=== PATIENT | female | born 1975 | race Caucasian/White ===

== ENCOUNTER → 2020-11-11 | Outpatient (CLI) | payer OTHER ==
[~2020-11-11] MED LIST: PEPCID20 MG PO; ZOFRAN ODT 4 MG4 MG SL
== END ==
LOC: SLEEP 14:00
DX: R29.818 Other symptoms and signs involving the nervous system (principal); E66.01 Morbid (severe) obesity due to excess calories
CPT/HCPCS: 95810

== ENCOUNTER 2021-05-10 00:48 | Emergency (ER) | payer OTHER ==
[~2021-05-10] VITALS: Ht 172.7 cm; Wt 149.7 kg
[2021-05-10 01:41] LABS: HEMOGLOBIN 12.5 gm/dl (12.3-15.3); RED BLOOD COUNT 5.31 M/UL (4.00-5.10); WHITE BLOOD COUNT 8.2 K/UL (4.5-11.0)
[2021-05-10 02:05] LABS: BUN/CREATININE RATIO 25 (0-10)
[2021-05-10] MEDS ORDERED: SPRINTEC 28 DA1 EACH PO (10:45)
[2021-05-10] MEDS ORDERED: ZESTRIL/PRINIVI10 MG PO (10:45)
[2021-05-10] MEDS ORDERED: ALL DAY ALLERGY10 MG PO (10:46)
[2021-05-10] MEDS ORDERED: LASIX TAB 20 MG20 MG PO (10:46)
[2021-05-10] MEDS ORDERED: FERROUS SULFAT325 M2 PO (10:46)
[2021-05-10] MEDS ORDERED: VITAMIN C 500500 MG PO (10:47)
[2021-05-10] MEDS ORDERED: LOPRESSOR 25 MG25 MG PO (18:26)
[2021-05-10] MEDS ORDERED: ELIQUIS5 MG PO (18:26)
== END 2021-05-10 19:15 | disposition home or self-care (01) ==
LOC: ER1 00:48 → CDU 04:32 → ER1 04:32
PROVIDERS: Physician Assistant
DX: I48.91 Unspecified atrial fibrillation (principal); E87.6 Hypokalemia; I10 Essential (primary) hypertension; D64.9 Anemia, unspecified; Z20.822 Contact with and (suspected) exposure to COVID-19; E78.5 Hyperlipidemia, unspecified; Z90.49 Acquired absence of other specified parts of digestive tract; Z88.0 Allergy status to penicillin
CPT/HCPCS: 71045; 80053; 82550; 82553; 82728; 83540; 83550; 83735; 83874; 83880; 84439; 84443; 84484; 85025; 85610; 85730; 93005; 96374; 99285; J0696; U0002

== ENCOUNTER → 2021-05-18 | Outpatient (CLI) | payer OTHER ==
[~2021-05-18] MED LIST changes: +ALL DAY ALLERGY10 MG PO; +ELIQUIS5 MG PO; +FERROUS SULFAT325 M2 PO; +LASIX TAB 20 MG20 MG PO; +LOPRESSOR 25 MG25 MG PO; +SPRINTEC 28 DA1 EACH PO; +VITAMIN C 500500 MG PO; +ZESTRIL/PRINIVI10 MG PO
== END ==
LOC: HEART 5 15:07
DX: I48.91 Unspecified atrial fibrillation (principal)

== ENCOUNTER → 2021-07-15 | Outpatient (CLI) | payer OTHER | LOC: ECHO 12:00 → NM 13:00 | DX: I20.9 Angina pectoris, unspecified (principal); R06.02 Shortness of breath; I51.7 Cardiomegaly; R94.39 Abnormal result of other cardiovascular function study | CPT/HCPCS: ECHO; 78452; 93017; 93306; A9502; J2785 ==

== ENCOUNTER 2022-01-14 22:27 | Emergency (ER) | payer OTHER ==
[2022-01-14 23:47] LABS: HEMOGLOBIN 13.1 gm/dl (12.3-15.3); RED BLOOD COUNT 4.87 M/UL (4.00-5.10); WHITE BLOOD COUNT 10.4 K/UL (4.5-11.0)
[2022-01-14 23:54] LABS: BUN/CREATININE RATIO 26 (0-10)
== END 2022-01-15 02:53 | disposition home or self-care (01) ==
LOC: ER1 22:27
PROVIDERS: Physician Assistant
DX: R07.2 Precordial pain (principal); R00.2 Palpitations; I11.9 Hypertensive heart disease without heart failure; I48.91 Unspecified atrial fibrillation; E78.5 Hyperlipidemia, unspecified; Z88.0 Allergy status to penicillin; Z79.82 Long term (current) use of aspirin; Z95.9 Presence of cardiac and vascular implant and graft, unspecified
CPT/HCPCS: 71045; 80053; 82550; 82553; 83690; 84439; 84443; 84484; 85025; 85379; 93005; 93242; 99285